=== PATIENT | male | born 1980 | race Caucasian/White ===

== ENCOUNTER 2022-12-07 08:54 | Day surgery (SDC) | payer BC ==
[2022-12-05 10:16] VITALS: BMI 34.9
[2022-12-07] MEDS ORDERED: Ferric Subsulfate (ASTRINGYN) 8 GM VIAL ONE (10:43)
[2022-12-07] MEDS ORDERED: EPINEPHrine 1 MG/ML AMP ONE (10:43)
[2022-12-07] MEDS ORDERED: Oxymetazoline HCl 0.05% (30 ML BOT) ONE (10:43)
[2022-12-07] MEDS ORDERED: Bacitracin Zinc Ointment 30 gm TUBE ONE (10:43)
[2022-12-07] MEDS ORDERED: fentaNYL PF 100 MCG/2 ML SYRINGE ONE (10:46)
[2022-12-07] MEDS ORDERED: Dexamethasone 4 mg/ml Vial ONE (11:01)
[2022-12-07] MEDS ORDERED: Ondansetron PF 4 MG/2 ML Vial ONE ×2 (11:01→11:16)
[2022-12-07] MEDS ORDERED: methylPREDNISolone Acetate 40 mg/ml Vial ONE (11:01)
[2022-12-07] MEDS ORDERED: SUGAMMADEX SODIUM 200 MG/2 ML VIAL ONE (11:01)
[2022-12-07] MEDS ORDERED: PROPOFOL 200 MG/20 ML VIAL ONE (11:16)
[2022-12-07] MEDS ORDERED: Lidocaine 1% PF 5 ML VIAL ONE (11:16)
[2022-12-07] MEDS ORDERED: Dexamethasone 20 MG/5 ML VIAL ONE (11:16)
[2022-12-07] MEDS ORDERED: Rocuronium Bromide 10 MG/ML (10ML VIAL) ONE (11:16)
[2022-12-07] MEDS ORDERED: Triamcinolone 40 MG/ML VIAL ONE (12:33)
[2022-12-07] MEDS ORDERED: fentaNYL 50 mcg/mL 1 mL Vial ONE (13:00)
[2022-12-07] MEDS ORDERED: Hydrocodone-Acetamin 15 ML UDCUP ONE (16:21)
== END 2022-12-07 16:51 | disposition home or self-care (01) ==
LOC: SDC 08:54
PROVIDERS: ATTEND Specialist
PROC: 099R8ZZ Drainage of Left Maxillary Sinus, Via Natural or Artificial Opening Endoscopic (ICD-10-PCS; principal; 2022-12-07)
PROC: 09BS8ZZ Excision of Right Frontal Sinus, Via Natural or Artificial Opening Endoscopic (ICD-10-PCS; principal; 2022-12-07)
PROC: 09BM0ZZ Excision of Nasal Septum, Open Approach (ICD-10-PCS; principal; 2022-12-07)
PROC: 099Q8ZZ Drainage of Right Maxillary Sinus, Via Natural or Artificial Opening Endoscopic (ICD-10-PCS; principal; 2022-12-07)
PROC: 0CTPXZZ Resection of Tonsils, External Approach (ICD-10-PCS; principal; 2022-12-07)
PROC: 09BT8ZZ Excision of Left Frontal Sinus, Via Natural or Artificial Opening Endoscopic (ICD-10-PCS; principal; 2022-12-07)
PROC: 0CTNXZZ Resection of Uvula, External Approach (ICD-10-PCS; principal; 2022-12-07)
PROC: 09B Ear, Nose, Sinus, Excision (ICD-10-PCS; principal; 2022-12-07)
PROC: 09TL8ZZ Resection of Nasal Turbinate, Via Natural or Artificial Opening Endoscopic (ICD-10-PCS; principal; 2022-12-07)
DX: J35.1 Hypertrophy of tonsils (principal); K13.79 Other lesions of oral mucosa; J34.3 Hypertrophy of nasal turbinates; J33.9 Nasal polyp, unspecified; G47.30 Sleep apnea, unspecified; J34.2 Deviated nasal septum; J32.9 Chronic sinusitis, unspecified; J30.9 Allergic rhinitis, unspecified
CPT/HCPCS: 88302; 88304; 93005; 93010; J0171; J1030; J1100; J2405; J2704; J3010; J3301